=== PATIENT | male | born 1960 | race Caucasian/White ===

== ENCOUNTER → 2017-08-15 | Outpatient (REF) ==
[2017-08-15 11:11] LABS: THYROID STIMULATING HORMONE 2.02 uIU/mL (0.465-4.680)
[2017-08-15 11:26] LABS: PSA-TOTAL 3.26 ng/mL (0-4)
== END ==
LOC: ZLAB.WCH 10:27
PROVIDERS: Internal Medicine
DX: Z01.89 Encounter for other specified special examinations (principal)
CPT/HCPCS: G0103

== ENCOUNTER → 2018-08-05 | Outpatient (REF) | LOC: ZLAB.WCH 19:30 | DX: Z01.89 Encounter for other specified special examinations (principal) | CPT/HCPCS: G0103 ==

== ENCOUNTER → 2018-08-06 | Outpatient (REF) | LOC: ZLAB.WCH 14:30 | DX: Z01.89 Encounter for other specified special examinations (principal) ==